=== PATIENT | female | born 1965 | race Caucasian/White ===

== ENCOUNTER → 2020-10-04 | Outpatient (CLI) | payer BC, OTHER | LOC: KOH-I 11:05 | DX: M47.812 Spondylosis without myelopathy or radiculopathy, cervical region (principal) | CPT/HCPCS: 72040 ==

== ENCOUNTER 2021-04-05 05:58 | Emergency (ER) | payer BC ==
[~2021-04-05] VITALS: Ht 167.6 cm; Wt 68.0 kg
[2021-04-05 07:00] LABS: WHITE BLOOD COUNT 5.1 K/UL (4.5-11.0)
[2021-04-05 07:26] LABS: BUN/CREATININE RATIO 16 (0-10)
== END 2021-04-05 11:46 | disposition home or self-care (01) ==
LOC: ER1 05:58
PROVIDERS: Family Medicine
DX: Z23 Encounter for immunization (principal); U07.1 COVID-19
CPT/HCPCS: 71045; 80053; 82550; 82553; 83615; 83874; 84484; 85025; 85652; 86140; 93005; 99284; J2270; J2405; M0243